=== PATIENT | female | born 1960 | race Caucasian/White ===

== ENCOUNTER 2016-09-22 15:05 | Emergency (ER) | payer OTHER ==
[2016-09-22 15:45] LABS: BASO % 0.3 % (0.1-1.2); EOS # 0.2 10_X3_uL (0.0-0.4); EOS % 2.3 % (0.7-5.8); GRAN # 6.9 10_X3_uL (1.6-6.1); GRAN % 67.2 % (34.0-71.1); HEMATOCRIT 32.6 % (34-45); HEMOGLOBIN 9.8 g/dL (11.2-15.7); LYMPH # 2.4 10_X3_uL (1.2-3.7); LYMPH % 23.7 % (19.3-51.7); MEAN CORPUSCULAR HEMOGLOBIN 24.3 pg (27.0-33.0); MEAN CORPUSCULAR HGB CONC 30.1 g/dL (32.0-36.0); MEAN CORPUSCULAR VOLUME 80.7 fL (79-95); MEAN PLATELET VOLUME 9.4 fl (7.5-11.5); MONO # 0.7 10_X3_uL (0.2-0.9); MONO % 6.5 % (4.7-12.5); PLATELET COUNT 316 x10_3/uL (182-369); RED BLOOD COUNT 4.04 x10_6/uL (3.9-5.2); RED CELL DISTRIBUTION WIDTH 16.9 % (11.7-14.4); WHITE BLOOD COUNT 10.2 x10_3/uL (4.0-10.0)
[2016-09-22 16:14] LABS: BLOOD UREA NITROGEN 15 mg/dL (7-18); CALCIUM 8.6 mg/dL (8.7-10.7); CARBON DIOXIDE 23 mmol/L (21-32); GLUCOSE,RANDOM 219 mg/dL (70-99); MAGNESIUM 1.6 mg/dL (1.8-2.4); POTASSIUM 4.4 mmol/L (3.5-5.1); SODIUM 143 mmol/L (136-145)
== END 2016-09-22 18:15 | disposition home or self-care (01) ==
LOC: ER 15:05
PROVIDERS: Internal Medicine
DX: R11.2 Nausea with vomiting, unspecified (principal); E83.42 Hypomagnesemia; R19.7 Diarrhea, unspecified; I10 Essential (primary) hypertension; E11.9 Type 2 diabetes mellitus without complications; Z88.2 Allergy status to sulfonamides; Z88.8 Allergy status to other drugs, medicaments and biological substances; Z79.899 Other long term (current) drug therapy; Z79.4 Long term (current) use of insulin
CPT/HCPCS: 36415; 80048; 83735; 85025; 96361; 96374; 99283-25; J8597